=== PATIENT | male | born 1980 | race Caucasian/White ===

== ENCOUNTER 2022-12-10 08:21 | Outpatient (AMB) | payer BC, SELFPAY ==
--- NOTE | 2022-12-10 09:22 | AM.OFFWIN_ITS ---
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 Patient denies acute trauma but does he works in a [employer] facility thus may have gone as into his however no acute episode noted. No pain with extraocular movement no vision changes discontinue tearing without purulent drainage. He does not wear contact lenses he wears glasses only. No fever, chills, other signs of upper respiratory infection. [facility] Social History Patient Tobacco Use Status: Never used Tobacco Review of Systems Const Reports as per HPI and Reports no additional complaints Eyes Reports no additional complaints ENT Reports no additional complaints and Reports as per HPI Card Reports as per HPI and Reports no additional complaints Neuro Reports no additional complaints and Reports as per HPI Physical Exam Vital Signs: Last Vital Signs Temp 97.5 F 12/10/22 09:30 Pulse 70 12/10/22 09:30 BP 138/78 12/10/22 09:30 Const General: cooperative, comfortable and no acute distress Orientation/consciousness: patient oriented x3 HEENT Head: Yes normal to inspection General nose exam: Normal external nose present and Normal nasal mucous membranes and turbinates present Eyes Visual Hammond: normal visual hammond by confrontation Alignment and Position: alignment normal Periorbital: periorbital findings normal Eyelids: Yes eyelid abnormality (Mild tenderness and edema to the left lid) Conjunctivae: conjunctival abnormal left conjunctival injection and discharge other (clear); without chemosis and without pterygia Sclerae: scleral abnormal left scleral injection; without exudates and without foreign bodies Corneas: corneas normal; fluorescein not used Pupils: Equal, round and reactive pupils present EOM: EOMs intact bilaterally Direct Ophthalmoscopy: normal light reflex Neck Neck: Yes no lymphadenopathy Resp Effort & Inspection: normal respiratory effort Auscultation: clear to auscultation bilaterally Cardio Rate: regular rate Rhythm: regular rhythm Heart sounds: S1 normal heart sound present and S2 normal heart sound present Neuro General: patient oriented x3 Cranial nerves: Yes Equal, round and reactive pupils present Assessment & Plan Assessment & Plan (1) Conjunctivitis: Code(s): H10.9 - Unspecified conjunctivitis Qualifiers: Conjunctivitis type: acute Acute conjunctivitis type: unspecified Laterality: left Qualified Code(s): H10.32 - Unspecified acute conjunctivitis, left eye Plan: Will start patient on a course of Polytrim, no foreign body noted. Advised to follow-up with eye professional within 1-2 days if symptoms are not improving for more in-depth exam. Return to clinic p.r.n.. Medications: New polymyxin B sulf-trimethoprim 10,000 unit- 1 mg/mL (Polytrim) while awake; do not exceed 6 doses in 24 hours 1 drp ophthalmic (eye) QID 7 days 10 mL 0RF H10.32 - Unspecified acute conjunctivitis, left eye Coding Level of Care Code New Pt Level 3 (45427) Diagnoses Acute conjunctivitis of left eye, unspecified acute conjunctivitis type H10.32 Conjunctivitis type: acute Acute conjunctivitis type: unspecified Laterality: left
[2022-12-10 09:30] VITALS: BP 138/78; PULSE 70; TEMP 36.4
== END 2022-12-10 10:12 | disposition home or self-care (01) ==
PROVIDERS: Visit Provider Physician Assistant
DX: H10.32 Unspecified acute conjunctivitis, left eye (principal)
CPT/HCPCS: 99203

== ENCOUNTER 2023-01-20 08:17 | Emergency (ER) | payer BC, SELFPAY ==
--- NOTE | ~2023-01-20 | US_ITS ---
EXAMINATION: US VENOUS ULTRASOUND WITH DOPPLER LOWER EXTREMITY, LEFT CLINICAL INFORMATION: Left lower extremity cramping and swelling COMPARISON: None available. TECHNIQUE: Ultrasound of the deep veins is performed from the hip to the calf with compression sonography and color and pulse Doppler assessment. Spectral analysis with color-flow imaging is performed. FINDINGS: The left common, proximal superficial femoral and profunda veins are patent with normal color flow. There is acute thrombus visualized in the mid common femoral vein to the midpole posterior tibial vein and color and Doppler exam. The peroneal vein is thrombosed. Knee right common femoral vein is patent. If the patient's symptoms persist, followup ultrasound in 5 days 7 days might be of value to exclude proximal propagation from a non-visualized calf vein. US/US venous duplex LE IMPRESSION: Acute DVT left mid superficial femoral vein to mid posterior tibial vein including the popliteal vein. Left common femoral, profunda and proximal superficial femoral veins are patent.
[2023-01-20 08:19] VITALS: BP 142/92; PULSE 75; RESP 16; TEMP 36.8; O2SAT 99; BMI 32.7
--- NOTE | 2023-01-20 08:29 | ED.EXTPRO ---
HPI - Extremity Problem General Chief complaint: Extremity Problem Stated complaint: Swelling left ankle Time Seen by Provider: 01/20/23 08:26 Source: patient Mode of arrival: ambulatory Limitations: no limitations History of Present Illness HPI Narrative: This is a 42-year-old male presenting with left lower extremity swelling for the past few days worsening, patient reports left lower extremity is more swollen than his right lower extremity, he also reports associated cramping/aching pain throughout his entire left lower extremity but worse around the calf, no associated trauma recently however remote history in 1999 of getting hit with a hockey puck in the calf. Patient denies numbness, tingling, redness, swelling, warmth, previous injury to this extremity. Related Data Previous Rx's Medication Instructions Recorded polymyxin B sulfate 10,000 1 drp ophthalmic (eye) QID 7 days 12/10/22 unit-trimethoprim 1 mg/mL eye #10 mL drops (Polytrim) apixaban 5 mg (74 tabs) tablets in 5 mg PO BID #74 ea 01/20/23 a dose pack ([facility] [employer] DVT-PE Treat 30D Start) Allergies Allergy/AdvReac Type Severity Reaction Status Date / Time No Known Allergies Allergy Verified 01/20/23 08:19 Review of Systems Review of Systems: Constitutional : No Weight loss, No Fever, No Chills, No Fatigue, No Malaise ENT/Mouth : No sore throat, No Rhinorrhea Eyes: No Eye Pain, No Swelling, No Redness Cardiovascular : No Chest Pain, No SOB, No Dyspnea on Exertion, No Orthopnea, No Edema, No Palpitations Respiratory : No Cough, No Sputum, No Wheezing Gastrointestinal : No Nausea, No Vomiting, No Diarrhea, No Constipation, No abdominal Pain, No Hematochezia, No Melena Genitourinary : No Dysuria, No Urinary Frequency, No Hematuria, Musculoskeletal : No joint pain, No Myalgias, No Joint Swelling, + LLE swelling Skin : No Skin Lesions, No rash Neuro : No Weakness, No Numbness, No Dizziness, No Headache Psych : No Anxiety/Panic, No Depression All other systems reviewed and are negative Yes all other systems are reviewed and are negative PMFSH Past Medical History Attestation statement: The following information was validated with the patient. Source: old records reviewed and nursing notes reviewed Social History Alcohol intake: never Patient Tobacco Use Status: Never used Tobacco Smoked in Last 30 Days: Yes Use of substances other than those prescribed or required for medical reasons: Yes Substance Use Type: Marijuana Advance Directives: No Advance Directives Information Provided: Yes Physical Exam Vital Signs: Vital Signs: Last Vital Signs Temp 98.3 F 01/20/23 08:19 Pulse 72 01/20/23 09:54 Resp 16 01/20/23 09:54 BP 139/89 01/20/23 09:54 Pulse Ox 96 01/20/23 09:54 O2 Del Method Room Air 01/20/23 09:54 BMI result Body Mass Index 32.7 vss Appearance: Alert.? Oriented X3.? No acute distress.? Head: Normocephalic, atraumatic, no step-offs or deformities Eyes: Pupils equal, round and reactive to light.? ENT: Pharynx normal.? Neck: Normal inspection.? Neck supple.? CVS: Normal heart rate and rhythm.? Pulses normal.? Respiratory: No respiratory distress.? Breath sounds normal.? Abdomen: Soft and nontender.? Skin: Skin warm and dry.? Normal skin color.? Normal skin turgor.? Extremities: 1+ pitting edema to LLE no edema to RLE. + shawn on left, negative on right. 2+ DP,,AT, PT equal and b/l. 5/5 strength to bilateral upper and lower extremities Neuro: Oriented X 3.? No motor deficit.? No sensory deficit. CN 2-12 intact Course Reevaluation(s) Reevaluation #1: CBC appears to be within normal limits. Chemistry unremarkable. Coags no acute findings. Patient is not bleeding, no blood in stool, or vomiting. No thrombocytopenia. No contraindication to blood thinner, I did go over risks and benefits of taking this medication patient agrees to take blood thinner, instructed on when to return to the emergency department. DVT noted in the left lower extremity. Waiting for final read from radiologist. Time: 10:30 Reevaluation #2: Patient noted to have DVT in the left mid superficial femoral vein to pending mid posterior tibial vein including the popliteal vein. Patient will be started on Eliquis. Patient will be started on Eliquis. Discussed this in length with patient he agrees to this. Patient does not have a PCP will give him a list of PCPs in the area for follow-up. Time: 11:33 Medical Decision Making Medical Decision Making [facility] Narrative: 0831 42 yo m presents w/ few days of LLE pain and swelling PE w/ 1+ pitting edema to LLE no edema to RLE. + shawn on left, negative on right. 2+ DP,,AT, PT equal and b/l. 5/5 strength to bilateral upper and lower extremities Concerns for DVT vs electrolyte abnormalities. Unlikely acute threat to limb, arterial occlusion, NV compromise. No signs of ACS or PE. Plan- labs, DVT study Differential Diagnosis Differential Diagnoses: The differential diagnosis associated with the presentation includes Concerns for DVT vs electrolyte abnormalities. Unlikely acute threat to limb, arterial occlusion, NV compromise . No signs of ACS or PE. Admission/Observation Consideration of admission/observation: Escalation of care including admission/observation considered Lab Data [facility] Lab Attestation statement: I reviewed the patient's lab results. 01/20/23 09:07 01/20/23 09:07 Labs: Lab Results 01/20/23 Range/Units 09:07 WBC 7.9 (4.8-10.8) X10*3/uL RBC 5.56 (4.60-5.80) X10*6/uL Hgb 17.0 (14.0-18.0) g/dl Hct 49.8 (42.0-52.0) % MCV 89.6 (80.0-98.0) fL MCH 30.6 (27.0-33.0) pg MCHC 34.1 (31.0-36.0) g/dl RDW 12.1 (11.0-16.0) % Plt Count 241 (160-400) X10*3/uL MPV 9.1 L (9.4-12.4) fL Immature Gran % (Auto) 0.3 (0.0-0.4) % Neut % (Auto) 61.5 (45-73) % Lymph % (Auto) 27.6 (20-40) % Mcpherson % (Auto) 7.4 (2-11) % Eos % (Auto) 2.7 (0-4) % Baso % (Auto) 0.5 (0-2) % Lymph # (Auto) 2.2 (1.2-4.9) X10*3/uL Mcpherson # (Auto) 0.6 (0.1-1.2) X10*3/uL Eos # (Auto) 0.2 (0.0-0.4) X10*3/uL Baso # (Auto) 0.0 (0.0-0.2) X10*3/uL Abs Immat Gran (auto) 0.02 (0.00-0.03) X10*3/uL Absolute Neuts (auto) 4.8 (2.0-8.3) x10*3/uL Absolute Nucleated RBC 0.000 (0.0-0.012) X10*3/uL Nucleated RBC % (auto) 0.0 (0.0-0.2) /100WBC PT 13.4 H (11.1-13.3) SEC INR 1.1 (0.9-1.1) D-Dimer High Sensitivty 542 NG/ML Sodium 140 (135-145) mmol/L Potassium 4.1 (3.3-5.1) mmol/L Chloride 107 (96-108) mmol/L Carbon Dioxide 25 (22-29) mmol/L Anion Gap 12 (12-20) BUN 11 (9-16) mg/dL Creatinine 0.81 (0.5-1.4) mg/dL Estim Creat Clear Calc 145.9 Estimated GFR > 60 Random Glucose 106 (60-115) mg/dL Calcium 9.8 (8.4-10.2) mg/dL Total Bilirubin 0.5 (0.0-1.0) mg/dL AST 17 (5-37) U/L ALT 20 (0-40) U/L Alkaline Phosphatase 73 (39-117) U/L Total Protein 7.8 (6.5-8.0) g/dL Albumin 4.7 (3.5-5.0) g/dL Independent Interpretation I performed an independent interpretation of an: Ultrasound (+ dvt ) Radiology Impression Discussion of test interpretation with radiology: I have reviewed the radiologist's reading. Prescription Management I considered prescription management with: Other (eliquis ) Chronic Conditions Patient?s care impacted by: Other (obesity ) Critical Care Time Critical Care Time Critical Care Time: Yes Total Critical Care Time: 35 Attestation: I attest to this time spent taking care of the patient, obtaining history, physical, reviewing labs, imaging, speaking to my attending Discharge Plan Discharge Clinical Impression: Deep vein thrombosis of lower extremity Patient Disposition: Home, Self-Care Instructions: Deep Vein Thrombosis (ED), Blood Thinners (ED), Deep Vein Thrombosis Prevention (ED) Additional Instructions: Take your medications as prescribed. If you were prescribed antibiotics today, it is important that you take your medication to their entirety, do not skip any doses, do not finish them early. Follow-up with your primary care provider this week. Return to the emergency department with new or worsening symptoms. Such as fevers, chills, chest pain, shortness of breath, nausea, vomiting, dizziness, headache, vision changes, lethargy In case of emergency call 911 You have been sent a blood thinners risks of blood thinners include bleeding, if you fall or any sort of trauma you should be evaluated by medical professional immediately. If you notice any blood in stool, vomit or uncontrolled bleeding of any sort please seek medical attention immediately. I gave you a list of primary care provider offices below pleas call to schedule an apt. US/US venous duplex LE LT IMPRESSION: Acute DVT left mid superficial femoral vein to mid posterior tibial vein including the popliteal vein. Left common femoral, profunda and proximal superficial femoral veins are patent. Prescriptions: New Eliquis DVT-PE Treat 30D Start 5 mg (74 tabs) tablets,dose pack 5 mg PO BID Qty: 74 0RF No Action polymyxin B sulf-trimethoprim [Polytrim] 10,000 unit- 1 mg/mL drops 1 drp ophthalmic (eye) QID 7 Days Qty: 10 0RF Rx Instructions: while awake; do not exceed 6 doses in 24 hours Referrals: Physician,Trini Balderrama [Primary Care Provider] - 2 days [facility] [Provider Group] - 1 day [facility] [Provider Group] - 1 day Stand Alone Forms: Work/School Release
--- NOTE | 2023-01-20 08:48 | PC.NURSE ---
PT REFUSING BLOODWORK AT THIS TIME, PA AWARE.
[2023-01-20 09:11] LABS: MANUAL DIFF FLAG NO
--- NOTE | 2023-01-20 09:11 | PC.NURSE ---
labs obtained and sent to lab. pt awaiting to have ultrasound completed at this time. partner bedside for support.
[2023-01-20 09:12] LABS: Basophils Percent Auto 0.5 % (0-2); Eosinophils Absolute Auto 0.2 X10*3/uL (0.0-0.4); Eosinophils Percent Auto 2.7 % (0-4); Hematocrit 49.8 % (42.0-52.0); Imm Gran Abs Auto 0.02 X10*3/uL (0.00-0.03); Imm Gran Pct Auto 0.3 % (0.0-0.4); Lymphocytes Absolute Auto 2.2 X10*3/uL (1.2-4.9); Lymphocytes Percent Auto 27.6 % (20-40); Mean Corpuscular HGB Conc 34.1 g/dl (31.0-36.0); Mean Corpuscular Hemoglobin 30.6 pg (27.0-33.0); Mean Corpuscular Volume 89.6 fL (80.0-98.0); Mean Platelet Volume 9.1 fL (9.4-12.4); Monocytes Absolute Auto 0.6 X10*3/uL (0.1-1.2); Monocytes Percent Auto 7.4 % (2-11); Neutrophils Absolute Auto 4.8 x10*3/uL (2.0-8.3); Neutrophils Percent Auto 61.5 % (45-73); Platelet Count 241 X10*3/uL (160-400); Red Blood Count 5.56 X10*6/uL (4.60-5.80); Red Cell Distribution Width 12.1 % (11.0-16.0); White Blood Count 7.9 X10*3/uL (4.8-10.8)
[2023-01-20 09:21] LABS: INTERNATIONAL NORM RATIO 1.1 (0.9-1.1); Prothrombin Time 13.4 SEC (11.1-13.3)
[2023-01-20 09:30] LABS: Alanine Aminotransferase 20 U/L (0-40); Albumin Level 4.7 g/dL (3.5-5.0); Alkaline Phosphatase 73 U/L (39-117); Anion Gap 12 (12-20); Aspartate Amino Transferase 17 U/L (5-37); Bilirubin Total 0.5 mg/dL (0.0-1.0); Blood Urea Nitrogen 11 mg/dL (9-16); Calcium 9.8 mg/dL (8.4-10.2); Carbon Dioxide 25 mmol/L (22-29); Chloride 107 mmol/L (96-108); Creatinine Clr Calc Pharmacy 145.9; Estimated Glomerular Filt Rate > 60; Glucose Random 106 mg/dL (60-115); Potassium 4.1 mmol/L (3.3-5.1); Sodium 140 mmol/L (135-145); Total Protein 7.8 g/dL (6.5-8.0)
[2023-01-20 09:54] VITALS: BP 139/89; PULSE 72; RESP 16; O2SAT 96
[2023-01-20 10:47] LABS: D Dimer High Sensitivity 542 NG/ML
== END 2023-01-20 11:56 | disposition home or self-care (01) ==
PROVIDERS: Physician Assistant; Emergency Provider Emergency Medicine
DX: I82.402 Acute embolism and thrombosis of unspecified deep veins of left lower extremity (principal); R60.0 Localized edema; M79.605 Pain in left leg; Z79.899 Other long term (current) drug therapy
CPT/HCPCS: 36415; 80053; 85025; 85379; 85610; 93971; 99284

== ENCOUNTER 2023-02-21 14:15 | Outpatient (AMB) | payer BC, SELFPAY ==
--- NOTE | 2023-02-21 14:18 | MHC.PC.OV ---
Vital Signs 02/21/23 14:21 Height 5 ft 10 in Weight 235 lb BMI 33.7 BP 118/70 Blood Pressure Location Rt brachial Position Sitting Pulse 74 Pulse Source Pulse Oximeter Pulse Oximetry (%) 99 Oxygen Delivery Method Room Air Intake Visit Reasons: est care, new patient Intake Note: Pt is here today as a New Patient to est care Allergies No Known Allergies Allergy (Verified 02/21/23 14:31) Medication List - Last Reconciled 02/21/23 by SUNITA Calvert apixaban (Eliquis DVT-PE Treat 30D Start) 5 mg PO BID Tobacco use date assessed: 02/21/23 Dental Screening Dental Screen Date: 02/21/23 Did you have a dental visit in the last 12 months?: No Was dental information given to patient?: No HPI HPI Comments History of Present Illness Details Patient is a 42-year-old male here to establish care. He was discharged from the emergency room 1 month prior to arrival with DVT of the left lower extremity. His initial symptoms were swelling and calf tenderness. He was given Eliquis to be taken as prescribed and instructed to wear a compression sleeve while at work. Today's visit he states that he has experienced lower extremity edema 25 of the 30 days since discharge from the emergency room, with some pain and redness. 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 He reports that after he is done working the swelling does mostly subside. Will need refill of Eliquis. Patient denies any, lightheadedness, dizziness, shortness of breath, nausea, vomiting, diarrhea, chest pain. He does admit some left foot discomfort and SLAUGHTER after going up stairs at work, but he states it quickly resolves. Patient has some erythema of the left lower extremity, +1 pitting edema. His pedal pulses are +2. Patient has full range of motion of the left lower extremity. Skin is warm to touch. Some bruising noted. Heart sounds normal, S1 and S2, normal rate and rhythm. Lung sounds clear bilaterally. The patient has been ordered a stat ultrasound of the left lower extremity to monitor DVT. He had Eliquis refilled and has been instructed to continue taking it as prescribed. He was given referrals to vascular surgery and Hematology. He has been educated on signs of worsening symptoms and when to report back to the office or when to present to the emergency room. Patient states that he understands these instructions. [facility] Social History Housing: House Alcohol intake: never Patient Tobacco Use Status: Never used Tobacco e-Cigarette/Vaping Use: Never Used Substance Use Type: Marijuana service: No Current occupational status: employed Cognitive needs: No Hearing needs: No Vision needs: Yes Questionnaire PHQ-9 Over the last 2 weeks, how often have you been bothered by any of the following problems? 1. Little interest or pleasure in doing things: not at all 2. Feeling down, depressed, or hopeless: not at all 3. Trouble falling or staying asleep, or sleeping too much: more than half the days 4. Feeling tired or having little energy: more than half the days 5. Poor appetite or overeating: not at all 6. Feeling bad about yourself - or that you are a failure or have let yourself or your family down: not at all 7. Trouble concentrating on things, such as reading the newspaper or watching television: not at all 8. Moving or speaking so slowly that other people could have noticed. Or the opposite - being so fidgety or restless that you have been moving around a lot more than usual: not at all 9. Thoughts that you would be better off or of hurting yourself in some way: not at all Total score: 4 Depression Screening Interpretation: Negative Depression Screening Done: Yes 30527 - PHQ-9 Billing: Yes Source: Developed by Drs. Michi Brambila, Helena Novak, Thomas Hubbard and colleagues, with an educational tony from [employer] ([employer]). Thrive Questionnaire Date Thrive assessed: 02/21/23 I am a: Patient What is your living situation today?: I have a steady place to live Within the past 12 months, did the food you bought not last and you didn't have the money to get more?: Sometimes True Within the past 12 months, did you worry whether your food would run out before you got money to buy more?: Never true Do you have trouble paying for medicines?: No Do you have trouble getting transportation to medical appointments?: No Do you have trouble paying your heating and electricity bill?: Yes Do you have trouble taking care of your child, family member or friend?: No Do you have trouble with day-to-day activities such as bathing, preparing meals, shopping, managing finances, etc.?: No Are you currently unemployed and looking for a job?: No Are you interested in more education?: No AUDIT C Alcohol Use Questionnaire (AUDIT-C) 1. How often do you have a drink containing alcohol?: Monthly or less 2. How many drinks containing alcohol do you have on a typical day when you are drinking?: 1 or 2 3. How often do you have six or more drinks on one occasion?: Never Total Score: 1 MAICO-7 AMB Questionnaire MAICO-7 Date MAICO - 7 assessed: 02/21/23 Feeling nervous, anxious, or on edge: 1 = Several days Not being able to stop or control worryin = More than half the days Worrying too much about different things: 2 = More than half the days Trouble relaxin = Not at all Being so restless that it is hard to sit still: 1 = Several days Becoming easily annoyed or irritable: 1 = Several days Feeling afraid as if something awful might happen: 0 = Not at all Total MAICO-7 score (0-4 normal; 5-9 mild; 10-14 moderate; 15-21 severe): 7 Source: Developed by Drs. Michi Brambila, Helena Novak, Thomas Hubbard and colleagues, with an educational tony from [employer]). MAICO-7 Assessment Billing MAICO-7 Assessment Tool: MAICO-7 Assessment 76288 Review of Systems Const Details: Constitutional : No Weight loss, No Fever, No Chills, No Fatigue, No Malaise Eyes: No Eye Pain, No Swelling, No Redness Cardiovascular : No Chest Pain, No SOB, Admits some Dyspnea on Exertion, No Orthopnea, Admits some LLE edema, No Palpitations Respiratory : No Cough, No Sputum, No Wheezing Gastrointestinal : No Nausea, No Vomiting, No Diarrhea, No Constipation, No abdominal Pain, No Hematochezia, No Melena Musculoskeletal : No joint pain, No Myalgias, No Joint Swelling Skin : No Skin Lesions, No rash, Some redness. Neuro : No Weakness, No Numbness, No Dizziness, No Headache Psych : No Anxiety/Panic, No Depression Heme/Lymph: Admits some Bruising, No Bleeding,No Lymphadenopathy Endocrine : No Polyuria, No Polydipsia All other systems reviewed and are negative Physical exam (Primary Care) Vital Signs: Last Vital Signs Pulse 74 02/21/23 14:21 BP 118/70 02/21/23 14:21 Pulse Ox 99 02/21/23 14:21 Oxygen Delivery Method Room Air 02/21/23 14:21 Care Plan Goal for BP management: Patient's vital signs have been reviewed and are stable. BMI result Body Mass Index 33.7 Tobacco/Smoking Status: Tobacco use Status Tobacco use date assessed 02/21/23 02/21/23 14:23 Patient Tobacco Use Status Never used Tobacco 02/21/23 14:23 e-Cigarette/Vaping Use Never Used 02/21/23 14:23 Depression Screening Interpretation: Negative Const Other: Appearance: Alert.? Oriented X3.? No acute distress.? Neck: Normal inspection.? Neck supple.? CVS: Normal heart rate and rhythm.? Pulses normal.?Pedal pulses plus 2. Respiratory: No respiratory distress.? Breath sounds normal.? Abdomen: Soft and nontender.? Skin: Skin warm and dry.?Some erythema of left foot. Slight bruising. ? Extremities: LLE edema. plus 1. Neuro: Oriented X 3.? No motor deficit.? No sensory deficit. General: cooperative and no acute distress Orientation/consciousness: patient oriented x3 Limitations: no limitations Neuro General: patient oriented x3 Assessment and Plan Assessment & Plan (1) Deep vein thrombosis (DVT): Comment: Patient was diagnosed with DVT while in the emergency room 1 month prior to arrival to this appointment. He was put on Eliquis 5 mg to be taken twice a day. At the appointment today he states that he is still experiencing some intermittent edema and left foot discomfort, especially after he works. 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 The patient has had his Eliquis refilled. He had a stat in office ultrasound of left lower extremity, initial interpretation demonstrated that the DVT was resolving. He will be given referral to Hematology and vascular surgery. He has been instructed to discontinue wearing his compression stocking while work to see if the edema decreases. He has been educated on signs of worsening symptoms and when to report back to the office or when to report to the emergency room. He has been re-educated to avoid using any NSAIDs and only use Tylenol for discomfort. Code(s): I82.409 - Acute embolism and thrombosis of unspecified deep veins of unspecified lower extremity Qualifiers: DVT location: lower extremity Affected thrombotic vein of extremity: unspecified vein of extremity Chronicity: acute Laterality: left Qualified Code(s): I82.402 - Acute embolism and thrombosis of unspecified deep veins of left lower extremity Plan: Take your medications as prescribed. If you were prescribed antibiotics today, it is important that you take your medication to their entirety, do not skip any doses, do not finish them early. Follow-up with your primary care provider this week. Return to the emergency department with new or worsening symptoms. Such as fevers, chills, chest pain, shortness of breath, nausea, vomiting, dizziness, headache, vision changes, lethargy In case of emergency call 911 Plan Will follow-up patient with official ultrasound reading. Patient has annual physical scheduled 3 months. He has been instructed to call or return to the office with any problems. Orders: Orders Complete Blood Count Auto Diff Today Z13.0 - Encounter for screening for diseases of the blood and blood-forming organs and certain disorders involving the immune mechanism Comprehensive Met. Panel Today Z91.89 - Other specified personal risk factors, not elsewhere classified US venous duplex LE LT Today I82.409 - Acute embolism and thrombosis of unspecified deep veins of unspecified lower extremity Referrals Vascular Surgery Referral I82.409 - Acute embolism and thrombosis of unspecified deep veins of unspecified lower extremity Hematology & Oncology Referral I82.409 - Acute embolism and thrombosis of unspecified deep veins of unspecified lower extremity Medications: New apixaban (Eliquis) 5 mg PO BID 60 tabs 0RF Discontinued apixaban (Eliquis DVT-PE Treat 30D Start) Discontinued Reason: Doctor's Order 5 mg PO BID 74 ea 0RF Coding Level of Care Code Est Pt Level 3 (52820) Diagnoses Acute deep vein thrombosis (DVT) of left lower extremity, unspecified vein I82.402 DVT location: lower extremity Affected thrombotic vein of extremity: unspecified vein of extremity Chronicity: acute Laterality: left Additional Codes MAICO-7 Assessment Billing - MAICO-7 Assessment Tool: MAICO-7 Assessment 15899 ([id number]) Time Spent (min) 45
[2023-02-21 14:21] VITALS: BP 118/70; PULSE 74; O2SAT 99; BMI 33.7
== END 2023-02-21 15:43 | disposition home or self-care (01) ==
PROVIDERS: Visit Provider Nurse Practitioner Primary Care
DX: I82.402 Acute embolism and thrombosis of unspecified deep veins of left lower extremity (principal)
CPT/HCPCS: 99214

== ENCOUNTER 2023-02-21 15:18 | Outpatient (REF) | payer BC, SELFPAY ==
--- NOTE | ~2023-02-21 | US_ITS ---
EXAMINATION: US VENOUS ULTRASOUND WITH DOPPLER LOWER EXTREMITY, LEFT CLINICAL INFORMATION: History of left leg DVT and left leg pain COMPARISON: None available. TECHNIQUE: Ultrasound of the deep veins is performed from the hip to the calf with compression sonography and color and pulse Doppler assessment. Spectral analysis with color-flow imaging is performed. FINDINGS: There is normal venous compression and respiratory variation and augmented flow. The visualized common femoral vein, superficial proximal and mid femoral vein, profunda femoral vein and the trifurcation region shows no evidence of deep venous thrombosis. There is flow visualized in the distal femoral vein as well as peroneal vein but hard to compress. There is a small partial thrombus seen in the popliteal vein and appears chronic. There is no significant popliteal fossa cyst. If the patient's symptoms persist, followup ultrasound in 5 days 7 days might be of value to exclude proximal propagation from a non-visualized calf vein. US/US venous duplex LE LT IMPRESSION: 1. No acute DVT demonstrated in the left lower extremity. 2. There is a small partial thrombus seen in the popliteal vein. The popliteal vein is otherwise patent 3. There is flow seen in the distal superficial femoral vein as well as peroneal vein but hard to compress.
== END 2023-02-21 15:19 | disposition home or self-care (01) ==
LOC: HO.HMGCX 15:18
PROVIDERS: Visit Provider Nurse Practitioner Primary Care
DX: I82.402 Acute embolism and thrombosis of unspecified deep veins of left lower extremity (principal)
CPT/HCPCS: 93971

== ENCOUNTER 2023-05-22 07:53 | Outpatient (AMB) | payer BC, SELFPAY ==
[2023-05-22 07:58] VITALS: BP 130/78; PULSE 70; O2SAT 99; BMI 33.8
--- NOTE | 2023-05-22 07:58 | MHC.PC.OV ---
Vital Signs 05/22/23 07:58 Height 5 ft 10 in Weight 235 lb 4 oz BMI 33.8 BP 130/78 Blood Pressure Location Lt brachial Position Sitting Pulse 70 Pulse Source Pulse Oximeter Pulse Oximetry (%) 99 Oxygen Delivery Method Room Air Intake Visit Reasons: Annual PE Intake Note: Pt is here for his Annual PE Allergies No Known Allergies Allergy (Verified 05/22/23 08:10) Medication List - Last Reconciled 05/22/23 by SUNITA Calvert apixaban (Eliquis) 5 mg PO BID Tobacco use date assessed: 05/22/23 Dental Screening Dental Screen Date: 05/22/23 Did you have a dental visit in the last 12 months?: Yes Did you have a dental problem in the last 6 months where you did not have access to dental care?: No Was dental information given to patient?: Patient has dentist HPI HPI Comments History of Present Illness Details Patient is a 43-year-old male here for physical exam. Will order fasting labs, including PSA. Patient declined influenza vaccine today. Patient has a past medical history significant for DVT in left lower extremity that was found in December of 2022. The patient was placed on Eliquis. At previous appointment patient had ultrasound of left lower extremity due to intermittent swelling and pain in the affected limb. That ultrasound found no acute DVT. Patient has referral to Hematology-Oncology was unable to make appointment in March. Patient will need to establish care with Hematology-Oncology. Patient has chief complaint of left shoulder pain. 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 States that is most uncomfortable at night is interrupting his ability to sleep. Is not utilizing NSAIDs due to Eliquis. [facility] Social History Housing: House Alcohol intake: never Patient Tobacco Use Status: Never used Tobacco e-Cigarette/Vaping Use: Never Used Substance Use Type: Marijuana service: No Current occupational status: employed Cognitive needs: No Hearing needs: No Vision needs: Yes Questionnaire PHQ-9 Over the last 2 weeks, how often have you been bothered by any of the following problems? 1. Little interest or pleasure in doing things: not at all 2. Feeling down, depressed, or hopeless: not at all 3. Trouble falling or staying asleep, or sleeping too much: more than half the days 4. Feeling tired or having little energy: more than half the days 5. Poor appetite or overeating: not at all 6. Feeling bad about yourself - or that you are a failure or have let yourself or your family down: not at all 7. Trouble concentrating on things, such as reading the newspaper or watching television: more than half the days 8. Moving or speaking so slowly that other people could have noticed. Or the opposite - being so fidgety or restless that you have been moving around a lot more than usual: not at all 9. Thoughts that you would be better off or of hurting yourself in some way: not at all Total score: 6 Depression Screening Interpretation: Negative Depression Screening Done: Yes 24931 - PHQ-9 Billing: Yes Source: Developed by Drs. Michi Brambila, Helena Novak, Thomas Hubbard and colleagues, with an educational tony from [email or web address]. Thrive Questionnaire Date Thrive assessed: 05/22/23 I am a: Patient What is your living situation today?: I have a steady place to live Within the past 12 months, did the food you bought not last and you didn't have the money to get more?: Often true Within the past 12 months, did you worry whether your food would run out before you got money to buy more?: Sometimes True Do you have trouble paying for medicines?: No Do you have trouble getting transportation to medical appointments?: No Do you have trouble paying your heating and electricity bill?: No Do you have trouble taking care of your child, family member or friend?: No Do you have trouble with day-to-day activities such as bathing, preparing meals, shopping, managing finances, etc.?: No Are you currently unemployed and looking for a job?: No Are you interested in more education?: No THRIVE Score: 2 AUDIT C Alcohol Use Questionnaire (AUDIT-C) 1. How often do you have a drink containing alcohol?: Monthly or less 2. How many drinks containing alcohol do you have on a typical day when you are drinking?: 1 or 2 3. How often do you have six or more drinks on one occasion?: Less than monthly Total Score: 2 MAICO-7 AMB Questionnaire MAICO-7 Date MAICO - 7 assessed: 05/22/23 Feeling nervous, anxious, or on edge: 2 = More than half the days Not being able to stop or control worryin = More than half the days Worrying too much about different things: 2 = More than half the days Trouble relaxin = Several days Being so restless that it is hard to sit still: 0 = Not at all Becoming easily annoyed or irritable: 0 = Not at all Feeling afraid as if something awful might happen: 1 = Several days Total MAICO-7 score (0-4 normal; 5-9 mild; 10-14 moderate; 15-21 severe): 8 Source: Developed by Drs. Michi Brambila, Helena Novak, Thomas Hubbard and colleagues, with an educational tony from [email or web address]. MAICO-7 Assessment Billing MAICO-7 Assessment Tool: MAICO-7 Assessment 98052 Review of Systems Const Details: Constitutional : No Weight loss, No Fever, No Chills, No Fatigue, No Malaise ENT/Mouth : No sore throat, No Rhinorrhea. Admits ear fullness. Eyes: No Eye Pain, No Swelling, No Redness Cardiovascular : No Chest Pain, No SOB, No Dyspnea on Exertion, No Orthopnea, No Edema, No Palpitations Respiratory : No Cough, No Sputum, No Wheezing Gastrointestinal : No Nausea, No Vomiting, No Diarrhea, No Constipation, No abdominal Pain, No Hematochezia, No Melena Genitourinary : No Dysuria, No Urinary Frequency, No Hematuria, Musculoskeletal : Admits left shoulder pain. Skin : Admits bumps behind left ear. Admits dandruff. Neuro : No Weakness, No Numbness, No Dizziness, No Headache Psych : No Anxiety/Panic, No Depression Heme/Lymph: Admits some Bruising LLE, No Bleeding,No Lymphadenopathy Endocrine : No Polyuria, No Polydipsia All other systems reviewed and are negative Physical exam (Primary Care) Care Plan Goal for BP management: Vital signs reviewed stable BMI result Body Mass Index 33.8 Tobacco/Smoking Status: Tobacco use Status Tobacco use date assessed 02/21/23 05/22/23 07:58 Patient Tobacco Use Status Never used Tobacco 05/22/23 07:58 e-Cigarette/Vaping Use Never Used 05/22/23 07:58 Depression Screening Interpretation: Negative Thrive Assessment: Date of Thrive Assessment Date Thrive assessed 02/21/23 05/22/23 07:58 Const Other: Appearance: Alert.? Oriented X3.? No acute distress.? Head: Normocephalic, atraumatic, Eyes: Pupils equal, round and reactive to light.? ENT: Pharynx normal.?Cerumen impaction left TM. Neck: Normal inspection.? Neck supple.?Full ROM. CVS: Normal heart rate and rhythm.? Pulses normal.? Respiratory: No respiratory distress.? Breath sounds normal.? Abdomen: Soft and nontender.? Skin: Scaling of scalp. Small cysts behind left ear, + pustule. +slight bruising LLE. Extremities: No lower extremity edema.? No calf ttp. 5/5 strength to bilateral upper and lower extremities. +crepitus to left shoulder. Back: No midline tenderness, no C-spine tenderness, full range of motion, no CVA tenderness bilaterally Neuro: Oriented X 3.? No motor deficit.? No sensory deficit. CN 2-12 intact Assessment and Plan Assessment & Plan (1) Encounter for routine adult physical exam with abnormal findings: Comment: Will order fasting labs including PSA. Patient declined influenza immunization. Code(s): Z00.01 - Encounter for general adult medical examination with abnormal findings (2) Left shoulder pain: Comment: Will order x-ray refer to physical therapy if indicated. Code(s): M25.512 - Pain in left shoulder Qualifiers: Chronicity: acute Qualified Code(s): M25.512 - Pain in left shoulder (3) Deep vein thrombosis (DVT): Comment: Patient is taking Eliquis 5 mg p.o. b.i.d.. Patient has referral to Hematology-Oncology Code(s): I82.409 - Acute embolism and thrombosis of unspecified deep veins of unspecified lower extremity Qualifiers: Affected thrombotic vein of extremity: unspecified vein of extremity Chronicity: acute DVT location: lower extremity Laterality: left Qualified Code(s): I82.402 - Acute embolism and thrombosis of unspecified deep veins of left lower extremity (4) Dandruff in adult: Comment: Will order ketoconazole shampoo Code(s): L21.0 - Seborrhea capitis (5) Sebaceous cyst of ear: Comment: Will order doxycycline to be taken as prescribed Code(s): L72.3 - Sebaceous cyst Plan: Take your medications as prescribed. If you were prescribed antibiotics today, it is important that you take your medication to their entirety, do not skip any doses, do not finish them early. Follow-up with your primary care provider this week. Return to the emergency department with new or worsening symptoms. Such as fevers, chills, chest pain, shortness of breath, nausea, vomiting, dizziness, headache, vision changes, lethargy In case of emergency call 911 Plan Patient will follow-up in 4 months. Orders: Orders XR shoulder LT min 2V Today M25.512 - Pain in left shoulder Medications: New doxycycline hyclate Take with food 100 mg PO BID 14 caps 0RF ketoconazole 1% 1 appl topical 2XW 125 mL 0RF Review Flu Vaccine not done: patient reason Coding Level of Care Code Est Pt Prev Care 40-64y(83071) Diagnoses Encounter for routine adult physical exam with abnormal findings Z00.01 Acute pain of left shoulder M25.512 Chronicity: acute Acute deep vein thrombosis (DVT) of left lower extremity, unspecified vein I82.402 Affected thrombotic vein of extremity: unspecified vein of extremity Chronicity: acute DVT location: lower extremity Laterality: left Dandruff in adult L21.0 Sebaceous cyst of ear L72.3 Additional Codes MAICO-7 Assessment Billing - MAICO-7 Assessment Tool: MAICO-7 Assessment 04305 ([id number])
== END 2023-05-22 08:40 | disposition home or self-care (01) ==
PROVIDERS: PCP Nurse Practitioner Primary Care; Visit Provider Nurse Practitioner Primary Care
DX: Z00.01 Encounter for general adult medical examination with abnormal findings (principal); M25.512 Pain in left shoulder; I82.402 Acute embolism and thrombosis of unspecified deep veins of left lower extremity; L21.0 Seborrhea capitis; L72.3 Sebaceous cyst
CPT/HCPCS: 99213; 99396

== ENCOUNTER 2024-01-27 10:16 | Outpatient (AMB) | payer BC, SELFPAY ==
--- NOTE | 2024-01-27 10:26 | MHC.PC.OV ---
Vital Signs 01/27/24 10:29 Height 5 ft 10 in Weight 232 lb BMI 33.3 BP 136/80 Blood Pressure Location Rt brachial Position Sitting Pulse 69 Pulse Source Pulse Oximeter Pulse Oximetry (%) 97 Oxygen Delivery Method Room Air Intake Visit Reasons: PE previous Yung pt Intake Note: Pt is here today for PE. Transfer from [facility]. Allergies No Known Allergies Allergy (Verified 01/27/24 10:35) Medication List - Last Reconciled 01/27/24 by Rupal Nielson MD apixaban (Eliquis) 5 mg PO BID ketoconazole 2% 1 appl topical 2XW Tobacco use date assessed: 01/27/24 Dental Screening Dental Screen Date: 05/22/23 HPI PE previous Yung pt HPI Details Patient presents for physical. He complains of left shoulder pain for 2 weeks worse after slipping on the left side started after lifting heavy object. 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 [facility] Surgical History (Updated 01/27/24 @ 10:38 by TULIO Rodrigues) H/O removal of cyst Social History Housing: House Alcohol intake: never Patient Tobacco Use Status: Never used Tobacco e-Cigarette/Vaping Use: Never Used Substance Use Type: Marijuana service: No Current occupational status: employed Cognitive needs: No Hearing needs: No Vision needs: Yes Questionnaire PHQ-9 Over the last 2 weeks, how often have you been bothered by any of the following problems? 1. Little interest or pleasure in doing things: not at all 2. Feeling down, depressed, or hopeless: not at all 3. Trouble falling or staying asleep, or sleeping too much: nearly every day 4. Feeling tired or having little energy: several days 5. Poor appetite or overeating: several days 6. Feeling bad about yourself - or that you are a failure or have let yourself or your family down: not at all 7. Trouble concentrating on things, such as reading the newspaper or watching television: not at all 8. Moving or speaking so slowly that other people could have noticed. Or the opposite - being so fidgety or restless that you have been moving around a lot more than usual: not at all 9. Thoughts that you would be better off or of hurting yourself in some way: not at all Total score: 5 Depression Screening Interpretation: Negative Depression Screening Done: Yes 85866 - PHQ-9 Billing: Yes Source: Developed by Drs. Michi Brambila, Helena Novak, Thomas Hubbard and colleagues, with an educational tony from [employer]. Thrive Questionnaire Date Thrive assessed: 01/27/24 I am a: Patient What is your living situation today?: I have a steady place to live Within the past 12 months, did the food you bought not last and you didn't have the money to get more?: Often true Within the past 12 months, did you worry whether your food would run out before you got money to buy more?: Sometimes True Do you have trouble paying for medicines?: Yes Do you have trouble getting transportation to medical appointments?: No Do you have trouble paying your heating and electricity bill?: No Do you have trouble taking care of your child, family member or friend?: No Do you have trouble with day-to-day activities such as bathing, preparing meals, shopping, managing finances, etc.?: No Are you currently unemployed and looking for a job?: No Are you interested in more education?: No Please select the resources that you would like help with: None Currently or been in a relationship where the following occur: No concerns reported THRIVE Score: 2 AUDIT C Alcohol Use Questionnaire (AUDIT-C) 1. How often do you have a drink containing alcohol?: 4 or more times a week 2. How many drinks containing alcohol do you have on a typical day when you are drinking?: 3 or 4 3. How often do you have six or more drinks on one occasion?: Weekly Total Score: 8 MAICO-7 AMB Questionnaire MAICO-7 Date MAICO - 7 assessed: 01/27/24 Feeling nervous, anxious, or on edge: 0 = Not at all Not being able to stop or control worryin = Not at all Worrying too much about different things: 0 = Not at all Trouble relaxin = Not at all Being so restless that it is hard to sit still: 0 = Not at all Becoming easily annoyed or irritable: 0 = Not at all Feeling afraid as if something awful might happen: 0 = Not at all Total MAICO-7 score (0-4 normal; 5-9 mild; 10-14 moderate; 15-21 severe): 0 Source: Developed by Drs. Michi Brambila, Helena Novak, Thomas Hubbard and colleagues, with an educational tony from [employer]. MAICO-7 Assessment Billing MAICO-7 Assessment Tool: MAICO-7 Assessment 44916 Review of Systems Const All systems reviewed & are unremarkable except as noted in HPI and below Eyes Reports no additional complaints ENT Reports no additional complaints Card Reports no additional complaints Resp Reports no additional complaints GI Reports no additional complaints Reports no additional complaints Physical exam (Primary Care) Vital Signs: Last Vital Signs Pulse 69 01/27/24 10:29 BP 136/80 01/27/24 10:29 Pulse Ox 97 01/27/24 10:29 Oxygen Delivery Method Room Air 01/27/24 10:29 BMI result Body Mass Index 33.3 Tobacco/Smoking Status: Tobacco use Status Tobacco use date assessed 01/27/24 01/27/24 10:39 Patient Tobacco Use Status Never used Tobacco 01/27/24 10:27 e-Cigarette/Vaping Use Never Used 01/27/24 10:27 PHQ-9: PHQ-9 Score PHQ-9: Total score 5 01/27/24 10:39 Depression Screening Interpretation: Negative Thrive Assessment: Date of Thrive Assessment Date Thrive assessed 01/27/24 01/27/24 10:39 Currently or been in a relationship where the following occur: No concerns reported Const General: no acute distress HENMT Head: Yes normal to inspection Ears: hearing grossly normal bilaterally Face and sinus: Yes normal facial exam Throat: Yes posterior oropharynx normal Eyes General: appearance normal, both eyes and all related structures Resp Effort & Inspection: normal respiratory effort Auscultation: clear to auscultation bilaterally Cardio Rhythm: regular rhythm Heart sounds: S1 normal heart sound present and S2 normal heart sound present GI Inspection: Yes normal to inspection Palpation (GI): Soft to palpation Percussion: Yes normal to percussion Auscultation: normal bowel sounds Coding Level of Care Code Est Pt Prev Care 40-64y(78375) Diagnoses Acute pain of left shoulder M25.512 Chronicity: acute Annual physical exam Z00.00 Acute deep vein thrombosis (DVT) of left lower extremity, unspecified vein I82.402 DVT location: lower extremity Affected thrombotic vein of extremity: unspecified vein of extremity Chronicity: acute Laterality: left Venous insufficiency of both lower extremities I87.2 Additional Codes MAICO-7 Assessment Billing - MAICO-7 Assessment Tool: MAICO-7 Assessment 15193 ([id number]) PHQ-9 - 74669 - PHQ-9 Billing: Yes ([id number]) Assessment & Plan Assessment & Plan (1) Left shoulder pain: Code(s): M25.512 - Pain in left shoulder Category: Medical Qualifiers: Chronicity: acute Qualified Code(s): M25.512 - Pain in left shoulder Plan: Referred to physical therapy (2) Annual physical exam: Code(s): Z00.00 - Encounter for general adult medical examination without abnormal findings Category: Medical Plan: Well-balanced diet regular physical activity discussed with the patient he will return for fasting blood work (3) Deep vein thrombosis (DVT): Comment: 01/17 on Eliquis 5 mg p.o. b.i.d. Code(s): I82.409 - Acute embolism and thrombosis of unspecified deep veins of unspecified lower extremity Category: Medical Qualifiers: DVT location: lower extremity Affected thrombotic vein of extremity: unspecified vein of extremity Chronicity: acute Laterality: left Qualified Code(s): I82.402 - Acute embolism and thrombosis of unspecified deep veins of left lower extremity Plan: Patient will complete a course of Eliquis in 3 months and will have hypercoagulable workup done and follow-up in 4 months (4) Venous insufficiency of both lower extremities: Code(s): I87.2 - Venous insufficiency (chronic) (peripheral) Category: Medical Plan: Patient was advised to wear compression stockings Orders: Orders Comprehensive [place]. Panel Fast 4 Months Z00.00 - Encounter for general adult medical examination without abnormal findings PT Evaluation and Treatment Today M25.512 - Pain in left shoulder Lipid Panel 4 Months Z00.00 - Encounter for general adult medical examination without abnormal findings Complete Blood Count Auto Diff 4 Months Z00.00 - Encounter for general adult medical examination without abnormal findings
[2024-01-27 10:29] VITALS: BP 136/80; PULSE 69; O2SAT 97; BMI 33.3
== END 2024-01-27 11:10 | disposition home or self-care (01) ==
PROVIDERS: Visit Provider Internal Medicine
DX: M25.512 Pain in left shoulder (principal); Z00.00 Encounter for general adult medical examination without abnormal findings; I82.402 Acute embolism and thrombosis of unspecified deep veins of left lower extremity; I87.2 Venous insufficiency (chronic) (peripheral)

== ENCOUNTER → 2024-01-27 10:16 | Outpatient (BNVA) | payer BC, SELFPAY | PROVIDERS: Visit Provider Internal Medicine | DX: Z00.01 Encounter for general adult medical examination with abnormal findings (principal); M25.512 Pain in left shoulder; I82.402 Acute embolism and thrombosis of unspecified deep veins of left lower extremity; I87.2 Venous insufficiency (chronic) (peripheral); Z79.01 Long term (current) use of anticoagulants | CPT/HCPCS: 96127 ==

== ENCOUNTER 2024-06-01 13:48 | Outpatient (AMB) | payer BC, SELFPAY ==
[2024-06-01 13:50] VITALS: BP 118/72; PULSE 70; RESP 20; TEMP 37.2; O2SAT 95; BMI 33.6
--- NOTE | 2024-06-01 13:50 | A.OFFPC_ITS ---
Vital Signs 06/01/24 13:50 Height 5 ft 10 in Weight 234 lb BMI 33.6 BP 118/72 Blood Pressure Location Rt brachial Position Sitting Respiration 20 Pulse 70 Pulse Source Pulse Oximeter Temp 98.9 F Temp Source Oral Pulse Oximetry (%) 95 Oxygen Delivery Method Room Air Intake Visit Reasons: 4 months f/up Intake Note: Pt is here today for 4 months follow up visit. Allergies No Known Allergies Allergy (Verified 06/01/24 13:51) Medication List - Last Reconciled 06/01/24 by Rupal Nielson MD ketoconazole 2% 1 appl topical 2XW Tobacco use date assessed: 06/01/24 Dental Screening Dental Screen Date: 06/01/24 Did you have a dental visit in the last 12 months?: Yes Did you have a dental problem in the last 6 months where you did not have access to dental care?: No Was dental information given to patient?: Patient has dentist HPI 4 months f/up HPI Details Patient presents complaining of recurrent chronic lower back pain radiating to right lower extremity with intermittent numbness and tingling sensation of the right foot for 1 month after lifting heavy object. Patient denies any weakness in extremities change in bowel or bladder function. [facility] Surgical History H/O removal of cyst Social History Housing: House Alcohol intake: never Patient Tobacco Use Status: Never used Tobacco e-Cigarette/Vaping Use: Never Used Substance Use Type: Marijuana service: No Current occupational status: employed Cognitive needs: No Hearing needs: No Vision needs: Yes Questionnaire PHQ-9 Over the last 2 weeks, how often have you been bothered by any of the following problems? 1. Little interest or pleasure in doing things: several days 2. Feeling down, depressed, or hopeless: not at all 3. Trouble falling or staying asleep, or sleeping too much: more than half the days 4. Feeling tired or having little energy: nearly every day 5. Poor appetite or overeating: not at all 6. Feeling bad about yourself - or that you are a failure or have let yourself or your family down: not at all 7. Trouble concentrating on things, such as reading the newspaper or watching television: not at all 8. Moving or speaking so slowly that other people could have noticed. Or the opposite - being so fidgety or restless that you have been moving around a lot more than usual: not at all 9. Thoughts that you would be better off or of hurting yourself in some way: not at all Total score: 6 Depression Screening Interpretation: Negative Depression Screening Done: Yes 36749 - PHQ-9 Billing: Yes Source: Developed by Drs. Michi Brambila, Helena Novak, Thomas Hubbard and colleagues, with an educational tony from [employer] Thrive Questionnaire Date Thrive assessed: 06/01/24 I am a: Patient What is your living situation today?: I have a steady place to live Within the past 12 months, did the food you bought not last and you didn't have the money to get more?: Never true Within the past 12 months, did you worry whether your food would run out before you got money to buy more?: Never true Do you have trouble paying for medicines?: No Do you have trouble getting transportation to medical appointments?: No Do you have trouble paying your heating and electricity bill?: No Do you have trouble taking care of your child, family member or friend?: No Do you have trouble with day-to-day activities such as bathing, preparing meals, shopping, managing finances, etc.?: I choose not to answer this question Are you currently unemployed and looking for a job?: No Are you interested in more education?: No Please select the resources that you would like help with: None Currently or been in a relationship where the following occur: No concerns reported THRIVE Score: 0 AUDIT C Alcohol Use Questionnaire (AUDIT-C) 1. How often do you have a drink containing alcohol?: 2-3 times a week 2. How many drinks containing alcohol do you have on a typical day when you are drinking?: 5 or 6 3. How often do you have six or more drinks on one occasion?: Weekly Total Score: 8 MAICO-7 AMB Questionnaire MAICO-7 Date MAICO - 7 assessed: 06/01/24 Feeling nervous, anxious, or on edge: 1 = Several days Not being able to stop or control worryin = More than half the days Worrying too much about different things: 2 = More than half the days Trouble relaxin = More than half the days Being so restless that it is hard to sit still: 2 = More than half the days Becoming easily annoyed or irritable: 2 = More than half the days Feeling afraid as if something awful might happen: 0 = Not at all Total MAICO-7 score (0-4 normal; 5-9 mild; 10-14 moderate; 15-21 severe): 11 Source: Developed by Drs. Michi Brambila, Helena Novak, Thomas Hubbard and colleagues, with an educational tony from [employer] MAICO-7 Assessment Billing MAICO-7 Assessment Tool: MAICO-7 Assessment 24418 Review of Systems Const All systems reviewed & are unremarkable except as noted in HPI and below Eyes Reports no additional complaints ENT Reports no additional complaints Card Reports no additional complaints Resp Reports no additional complaints GI Reports no additional complaints Reports no additional complaints Physical exam (Primary Care) Vital Signs: Last Vital Signs Temp 98.9 F 06/01/24 13:50 Pulse 70 06/01/24 13:50 Resp 20 06/01/24 13:50 BP 118/72 06/01/24 13:50 Pulse Ox 95 06/01/24 13:50 Oxygen Delivery Method Room Air 06/01/24 13:50 BMI result Body Mass Index 33.6 Tobacco/Smoking Status: Tobacco use Status Tobacco use date assessed 06/01/24 06/01/24 13:52 Patient Tobacco Use Status Never used Tobacco 06/01/24 13:52 e-Cigarette/Vaping Use Never Used 06/01/24 13:52 PHQ-9: PHQ-9 Score PHQ-9: Total score 6 06/01/24 14:26 Depression Screening Interpretation: Negative Thrive Assessment: Date of Thrive Assessment Date Thrive assessed 06/01/24 06/01/24 13:52 Currently or been in a relationship where the following occur: No concerns reported Const General: no acute distress Eyes General: appearance normal, both eyes and all related structures Resp Effort & Inspection: normal respiratory effort Auscultation: clear to auscultation bilaterally Cardio Rhythm: regular rhythm Heart sounds: S1 normal heart sound present and S2 normal heart sound present Back/Spine/Pelvis Other: Paraspinal tenderness in lower lumbar region right more than left, straight leg rising 90 degrees bilaterally, motor strength 5/5 bilaterally deep tendon reflexes 2+ bilaterally, toe and heel walk intact bilaterally Coding Level of Care Code Est Pt Level 3 (68874) Diagnoses Sciatica M54.30 Additional Codes MAICO-7 Assessment Billing - MAICO-7 Assessment Tool: MAICO-7 Assessment 01200 ([id number]) PHQ-9 - 49189 - PHQ-9 Billing: Yes ([id number]) Assessment & Plan Assessment & Plan (1) Sciatica: Code(s): M54.30 - Sciatica, unspecified side Category: Medical Plan: For persistent sciatica x-ray lumbar spine will be obtained patient will be referred to physical therapy and meloxicam is prescribed. Patient will follow- up as needed Orders: Orders PT Evaluation and Treatment Today M54.30 - Sciatica, unspecified side XR lumbar spine 2-3V Today M54.30 - Sciatica, unspecified side Medications: New meloxicam 15 mg PO DAILY 14 tabs 0RF
== END 2024-06-01 15:02 | disposition home or self-care (01) ==
LOC: HO.HMCC 13:49
PROVIDERS: PCP Internal Medicine; Visit Provider Internal Medicine
DX: M54.30 Sciatica, unspecified side (principal)

== ENCOUNTER 2024-06-01 13:48 | Outpatient (REF) | payer BC, SELFPAY ==
--- NOTE | ~2024-06-01 | XR_ITS ---
EXAMINATION: XR LUMBOSACRAL SPINE CLINICAL INFORMATION: M54.30 - Sciatica, unspecified side COMPARISON: None available. TECHNIQUE: Three views of the lumbosacral spine. FINDINGS: No scoliosis. Normal lordosis. No fracture, compression deformity, or suspicious bone lesion. There is a 4 mm degenerative anterolisthesis of L5 on S1. Alignment is otherwise normal sagittally. There is mild disc space narrowing noted L3-4, and L4-5, with moderate narrowing at L5-S1. There is normal facet alignment. There are degenerative facet changes spanning L4-S1. Suggestion of pars defects at L5-S1. Normal SI joints and sacrum. Normal soft tissues. XR/XR lumbar spine 2-3V IMPRESSION: 1. Suspect grade 1 spondylolisthesis L5-S1. 2. Mild spondylosis otherwise, most significant at L4-S1. Electronically signed by: Chinmay Marino MD 06/02/2024 11:56 AM EDT
== END 2024-06-01 13:49 | disposition home or self-care (01) ==
LOC: HO.HMGCX 13:48
PROVIDERS: PCP Internal Medicine; Visit Provider Internal Medicine
DX: M54.30 Sciatica, unspecified side (principal)
CPT/HCPCS: 72100; 96127

== ENCOUNTER → 2024-06-01 14:45 | Outpatient (BNV) | payer BC, SELFPAY | PROVIDERS: PCP Internal Medicine; Visit Provider Radiology Diagnostic Radiology | DX: M54.30 Sciatica, unspecified side (principal); M47.817 Spondylosis without myelopathy or radiculopathy, lumbosacral region | CPT/HCPCS: 72100 ==

== ENCOUNTER 2024-09-28 14:13 | Outpatient (REF) | payer BC, SELFPAY ==
--- NOTE | ~2024-09-28 | XR_ITS ---
EXAMINATION: XR SHOULDER 2 OR MORE VIEWS LEFT HISTORY: M25.512 - Pain in left shoulder COMPARISON: There are no prior studies available for comparison. FINDINGS: Four views of the left shoulder are submitted. Osseous mineralization is normal. There is no fracture or dislocation. There is mild narrowing of the C joint. The glenohumeral joint is maintained. The soft tissues are unremarkable. XR/XR shoulder LT min 2V IMPRESSION: Mild narrowing of the AC joint. Electronically signed by: Michi Rubio MD 09/28/2024 03:29 PM EDT
== END 2024-09-28 14:14 | disposition home or self-care (01) ==
LOC: HO.HMGCX 14:13
PROVIDERS: PCP Internal Medicine; Visit Provider Internal Medicine
DX: M25.512 Pain in left shoulder (principal); K92.1 Melena
CPT/HCPCS: 73030

== ENCOUNTER 2024-09-28 14:13 | Outpatient (AMB) | payer BC, SELFPAY ==
--- NOTE | 2024-09-28 14:15 | A.OFFPC_ITS ---
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 Patient reports intermittent pain also when sleeping on the left side or reaching overhead or behind his back. 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 Patient reports episodes of noticing blood in the toilet and on stool and small droplets of blood after having bowel movement once or twice a month for the last few months. He denies constipation, abdominal or rectal pain, external hemorrhoids. [facility] Medical History (Updated 09/28/24 @ 15:16 by Rupal Nielson MD) Annual physical exam Left shoulder pain Hematochezia Deep vein thrombosis (DVT) Surgical History H/O removal of cyst Social History Housing: House Alcohol intake: never Patient Tobacco Use Status: Never used Tobacco e-Cigarette/Vaping Use: Never Used Substance Use Type: Marijuana service: No Current occupational status: employed Cognitive needs: No Hearing needs: No Vision needs: Yes Questionnaire Thrive Questionnaire Date Thrive assessed: 06/01/24 I am a: Patient What is your living situation today?: I have a steady place to live Within the past 12 months, did the food you bought not last and you didn't have the money to get more?: Never true Within the past 12 months, did you worry whether your food would run out before you got money to buy more?: Never true Do you have trouble paying for medicines?: No Do you have trouble getting transportation to medical appointments?: No Do you have trouble paying your heating and electricity bill?: No Do you have trouble taking care of your child, family member or friend?: No Do you have trouble with day-to-day activities such as bathing, preparing meals, shopping, managing finances, etc.?: I choose not to answer this question Are you currently unemployed and looking for a job?: No Are you interested in more education?: No Please select the resources that you would like help with: None Currently or been in a relationship where the following occur: No concerns reported THRIVE Score: 0 MAICO-7 AMB Questionnaire MAICO-7 Date MAICO - 7 assessed: 06/01/24 Source: Developed by Drs. Michi Brambila, Helena Novak, Thomas Hubbard and colleagues, with an educational tony from [employer]. Review of Systems Const All systems reviewed & are unremarkable except as noted in HPI and below Eyes Reports no additional complaints ENT Reports no additional complaints Card Reports no additional complaints Resp Reports no additional complaints GI Reports no additional complaints Reports no additional complaints Physical exam (Primary Care) Vital Signs: Last Vital Signs Temp 98.1 F 09/28/24 14:16 Pulse 80 09/28/24 14:16 Resp 18 09/28/24 14:16 BP 128/82 09/28/24 14:16 Pulse Ox 97 09/28/24 14:16 Oxygen Delivery Method Room Air 09/28/24 14:16 BMI result Body Mass Index 33.4 Tobacco/Smoking Status: Tobacco use Status Tobacco use date assessed 09/28/24 09/28/24 14:22 Patient Tobacco Use Status Never used Tobacco 09/28/24 14:22 e-Cigarette/Vaping Use Never Used 09/28/24 14:22 Thrive Assessment: Date of Thrive Assessment Date Thrive assessed 06/01/24 09/28/24 14:22 Currently or been in a relationship where the following occur: No concerns reported Const General: no acute distress HENMT Head: Yes normal to inspection Ears: hearing grossly normal bilaterally Throat: Yes posterior oropharynx normal Resp Effort & Inspection: normal respiratory effort Auscultation: clear to auscultation bilaterally Cardio Rhythm: regular rhythm Heart sounds: S1 normal heart sound present and S2 normal heart sound present Extrem Other: There is a slightly decreased range of motion in the left shoulder, no joint tenderness, motor strength is 5/5 in both upper extremities, deep tendon reflexes 2+ bilaterally Coding Level of Care Code Est Pt Level 3 (06600) Diagnoses Acute pain of left shoulder M25.512 Chronicity: acute Hematochezia K92.1 Assessment & Plan Assessment & Plan (1) Left shoulder pain: Code(s): M25.512 - Pain in left shoulder Category: Medical Qualifiers: Chronicity: acute Qualified Code(s): M25.512 - Pain in left shoulder Plan: Check x-ray and referred to physical therapy. (2) Hematochezia: Code(s): K92.1 - Melena Category: Medical Plan: Hemoccult cards given to the patient and referred to GI Orders: Orders 2 AMB Stool Occult Bld x3 gFOBT Today M25.512 - Pain in left shoulder, Z12.11 - Encounter for screening for malignant neoplasm of colon, Z12.12 - Encounter for screening for malignant neoplasm of rectum XR shoulder LT min 2V Today M25.512 - Pain in left shoulder PT Evaluation and Treatment Today M25.512 - Pain in left shoulder Comprehensive [place]. Panel Fast 4 Months Z00.00 - Encounter for general adult medical examination without abnormal findings Lipid Panel 4 Months Z00.00 - Encounter for general adult medical examination without abnormal findings Complete Blood Count Auto Diff 4 Months Z00.00 - Encounter for general adult medical examination without abnormal findings UA w Microscopic 4 Months Z00.00 - Encounter for general adult medical examination without abnormal findings Referrals Gastroenterology Referral K92.1 - Melena Medications: Discontinued ketoconazole 2% Discontinued Reason: Doctor's Order 1 appl topical 2XW 120 mL 0RF
[2024-09-28 14:16] VITALS: BP 128/82; PULSE 80; RESP 18; TEMP 36.7; O2SAT 97; BMI 33.4
== END 2024-09-28 15:15 | disposition home or self-care (01) ==
LOC: HO.HMCC 14:14
PROVIDERS: PCP Internal Medicine; Visit Provider Internal Medicine
DX: M25.512 Pain in left shoulder (principal); K92.1 Melena

== ENCOUNTER → 2024-09-28 15:16 | Outpatient (BNV) | payer BC, SELFPAY | PROVIDERS: PCP Internal Medicine; Visit Provider Radiology Diagnostic Radiology | DX: M25.512 Pain in left shoulder (principal) | CPT/HCPCS: 73030 ==

== ENCOUNTER 2024-11-03 | Outpatient (REF) | payer BC, SELFPAY ==
[2024-11-14 09:15] LABS: FIT Date 1 9/8/25; FIT Date 2 9/9/25; FIT Int Ctl YES; FIT1 NEGATIVE (NEGATIVE); FIT2 POSITIVE (NEGATIVE)
[2024-11-14 09:16] LABS: FIT Lot M502755
== END 2024-11-03 00:01 | disposition home or self-care (01) ==
LOC: HO.LNP
PROVIDERS: Visit Provider Internal Medicine
DX: Z12.12 Encounter for screening for malignant neoplasm of rectum (principal); Z12.11 Encounter for screening for malignant neoplasm of colon; M25.512 Pain in left shoulder
CPT/HCPCS: 82274